=== PATIENT | female | born 1970 | race Native Hawaiian/Other Pacific Islander ===

== ENCOUNTER 2024-11-17 19:47 | Emergency (ER) | payer MEDICAID, SELFPAY ==
[2024-11-17 19:54] VITALS: BP 123/76; PULSE 109; RESP 26; TEMP 36.4; O2SAT 100
--- NOTE | 2024-11-17 19:57 | PD.EDCHEST ---
ED Chest Pain RME/HPI General Chief Complaint: Chest Pain Stated Complaint: RIGHT CHEST AREA PAIN Time Seen by Provider: 11/17/24 20:00 Arrival date/time: 11/17/24 19:47 RME / HPI RME / HPI narrative: This section includes all my notes and documentations, including HPI, PE, and ED course. Jos Waller MD HPI: 54yo female with a history of asthma presents to the ED for a chief complaint of right lower chest/right upper rib pain since last night. Patient states she's had a productive cough for the last 3 weeks, reporting she takes prednisone as needed. Patient denies any fever, chills, N/V or any other associated symptoms. Denies any falls or injuries. No other complaints reported. ROS: All negative except as documented in HPI. Physical Exam: General: Alert and oriented. In severe pain. Eyes: Conjunctivae and lids clear. ENT: No nasal congestion. Neck: Supple. Heart: RRR. Lungs: No respiratory distress. Good air movement with bibasilar rales. Abdomen: Soft and nontender. Normal bowel sounds. No distension. No rebound or guarding. Back: No CVA tenderness. Skin: Warm and dry. Neuro: Alert and oriented X 3. I reviewed all diagnostic test results. My interpretation of the EKG is unremarkable except for sinus tachycardia. My interpretation of the chest x-ray is significant right base pneumonia. My review of the US gallbladder is unremarkable. My review of the CT angio chest and CT abdomen pelvis reports show significant pneumonia at the right base. Blood tests and urine tests are unremarkable. At this point, diagnoses include pneumonia. Treatment here included Dilaudid, 2L NS, Rocephin, Azithromycin, Toradol, Morphine, Solu-Medrol, and Zofran. Significant improvement noted. Patient evaluated by our hospitalist service. Offered admission for the severe presentation of pain. Patient declined. Will try at home. Based on my best medical judgment, made decision no further evaluation or treatment indicated at this time. Patient understands and agrees to the discharge instructions customized and printed, see below. Discharge instructions from Dr. Waller: --No physical exertion for 3 days to help rest the lungs. ?No smoking or exposure to smoking or pets or dust or cold or humidity. --Zithromax and cefdinir to kill the germs causing the pneumonia. --Prednisone to help decrease the swelling in the airways. --Albuterol 2 puffs every 4-6 hours as needed for cough or shortness of breath. --Toradol 10 mg every 6-8 hours today and tomorrow to decrease inflammation then as needed. --Tylenol with codeine for more help with pain. --See a private doctor next week if not completely better. --Seek immediate medical care with worsening or with any concerns. Jos Waller MD Related Data Home Medications ?Medication ?Instructions ?Recorded ?Confirmed albuterol sulfate 90 mcg/actuation 1 puff inhalation Q4HR 04/17/22 04/17/22 aerosol inhaler Previous Rx's ?Medication ?Instructions ?Recorded acetaminophen 300 mg-codeine 30 mg 2 tab PO Q8H PRN pain #20 tabs 11/18/24 tablet albuterol sulfate 90 mcg/actuation 2 puff inhalation Q6H PRN 11/18/24 aerosol inhaler shortness of breath or wheezing #8.5 grams azithromycin 500 mg tablet 500 mg PO QDAY 3 days #3 tabs 11/18/24 (Zithromax [place]) cefdinir 300 mg capsule 300 mg PO BID #14 caps 11/18/24 ketorolac 10 mg tablet 10 mg PO Q8H PRN pain 5 days #10 11/18/24 tabs prednisone 50 mg tablet 50 mg PO QDAY #3 tabs 11/18/24 Allergies Allergy/AdvReac Type Severity Reaction Status Date / Time No Known Allergies Allergy Verified 04/17/22 14:30 Review of Systems Review of Systems Systems Reviewed: All systems reviewed, normal except as documented Past Medical History Past Medical History NEUROLOGIC: Positive Neurological Disorders and Migraine; Negative Seizures CARDIAC: Negative Cardiac Disorders or Congestive Heart Failure RESPIRATORY: Positive Asthma (uses inhalor); Negative Chronic Obstructive Pulmonary Disease (COPD) GASTROINTESTINAL: Negative Gastrointestinal Disorders GENITOURINARY: Negative Genitourinary Disorders or Renal Disease MUSCULOSKELETAL: Negative Musculoskeletal Disorders ENDOCRINE: Negative Endocrine Disorders, Diabetes Mellitus Type 1 or Diabetes Mellitus Type 2 HEMATOLOGIC: Negative Blood Disorders OTHER HISTORY: Negative Blood Transfusions, Blood Transfusion Reaction, Anesthesia Reactions, Organ Transplant, Chemotherapy, Radiation Therapy, Hyperbaric Therapy, MRSA, Clostridium Difficile or Cancer Family History FAMILY HISTORY: Negative Family Cardiac Disorders Surgical History SURGICAL: Positive Tubal Ligation; Negative Organ Transplant Social History SMOKING STATUS: Former smoker ED Exam Narrative Physical exam: As noted in HPI. Course Course Course Narrative: CXR is ordered for determining the etiology of chest pain. Quality Measures none Orders Category Date Time Status Bedside COVID-19 Antigen Test NOW Care 11/17/24 20:01 Active Bedside Influenza A&B Antigen Test NOW Care 11/17/24 20:[address] Screening NOW Care 11/17/24 20:02 Active EKG (ED ONLY) *Do not use* NOW Care 11/17/24 20:02 Completed Saline [Insert IV] NOW Care 11/17/24 20:[address] abdomen pelvis w con Stat Exams 11/17/24 20:[address] angio chest Stat Exams 11/17/24 20:02 Completed EKG (ED Only) Stat Exams 11/17/24 20:02 Draft US gall bladder Stat Exams 11/17/24 20:02 Completed XR chest 1V portable Stat Exams 11/17/24 20:02 Completed Amylase Stat Lab 11/17/24 20:20 Completed BNP [B-Type Natriuretic Peptide] Stat Lab 11/17/24 20:20 Completed Bilirubin,Direct Stat Lab 11/17/24 20:20 Completed Blood Culture (Lab) Stat Lab 11/17/24 21:50 Received CBC Stat Lab 11/17/24 20:20 Completed CMP [Comprehensive Metabolic Panel] Stat Lab 11/17/24 20:20 Completed CRP [C-Reactive Protein] Stat Lab 11/17/24 21:53 Completed D-Dimer Stat Lab 11/17/24 20:20 Completed ESR [Sed Rate (ESR)] Stat Lab 11/17/24 21:53 Completed Lipase Stat Lab 11/17/24 20:20 Completed Magnesium Stat Lab 11/17/24 20:20 Completed Procalcitonin Stat Lab 11/17/24 21:53 Completed Troponin I Stat Lab 11/17/24 20:20 Completed UA, C/S IF [Urinalysis, C/S if Indicated] Stat Lab 11/17/24 20:45 Completed Urine Culture Stat Lab 11/17/24 20:45 Received Azithromycin Inj [Zithromax Inj] 500 mg Med 11/17/24 21:38 Discontinued Sodium Chloride 0.9% 250 ml [Ns] 250 ml IV X1 HYDROmorphone INJ [Dilaudid Inj] Med 11/17/24 20:47 Discontinued 1 mg IVP X1 ONE Ketorolac Inj [Toradol Inj] Med 11/17/24 20:01 Discontinued 15 mg IVP X1 ONE Morphine Inj Med 11/17/24 20:01 Discontinued 2 mg IVP X1 ONE Ondansetron Inj [Zofran Inj] Med 11/17/24 22:40 Discontinued 4 mg IV X1 ONE Sodium Chloride 0.9% 1000 ml [Ns] 1,000 ml Med 11/17/24 20:01 Discontinued IV 999 mls/hr Sodium Chloride 0.9% 1000 ml [Ns] 1,000 ml Med 11/17/24 22:40 Discontinued IV 999 mls/hr cefTRIAXone/D5w 1gm IV premix [Rocephin/D5w 1gm IV Med 11/17/24 21:02 Discontinued premix] 1 gm in 50 ml IV X1 Vital Signs Vital signs: Vital Signs Temperature 97.6 F 11/17/24 19:54 Pulse Rate 109 H 11/17/24 19:54 Respiratory Rate 26 H 11/17/24 19:54 Blood Pressure 123/76 11/17/24 19:54 Pulse Oximetry (%) 100 11/17/24 19:54 Oxygen Delivery Method Room Air 11/17/24 19:54 Chest Pain MDM Narrative MDM Narrative:: Scribe Attestation: 11/17/24 - Lala Bowers am scribing for and in the presence of Dr. Waller. 54yo female with a history of asthma presents to the ED for a chief complaint of right lower chest/right upper rib pain since last night. Patient states she's had a productive cough for the last 3 weeks, reporting she takes prednisone as needed. Patient states she started having chest pain last night that has progressively gotten worse, so she came in for evaluation. Patient denies any fever, chills, N/V or any other associated symptoms. Denies any falls or injuries. No other complaints reported. Patient data External records reviewed:: [facility] previous records (Per chart review, patient has no relevant previous ED visits.) Clinical information provided by:: patient Social determinants that could affect healthcare access:: none Patient has the following chronic illnesses:: asthma How is presenting disease/condition affected by chronic disease/condition?: uneffected by Evaluation data The following diagnostics were reviewed and interpreted by me:: lab results, radiology exam(s) and EKG tracing(s) (My interpretation of the EKG is: Sinus tachycardia (111 bpm) with nonspecific ST-T changes. Jos Waller MD) Lab and/or radiology exams considered but not ordered:: none Interpretation Summary: I reviewed all diagnostic test results. My interpretation of the EKG is unremarkable except for sinus tachycardia. My interpretation of the chest x-ray is significant right base pneumonia. My review of the US gallbladder is unremarkable. My review of the CT angio chest and CT abdomen pelvis reports show significant pneumonia at the right base. Blood tests and urine tests are unremarkable except for an elevated white blood cell count. Medications / Prescriptions Medications or Prescriptions considered but not ordered:: none Medication administrations:: Medication Administration History Discontinued Medications Hydromorphone HCl (Hydromorphone Inj 2 Mg/Ml Vial) 1 mg IVP X1 ONE Stop: 11/17/24 20:48 Last Admin: 11/17/24 20:57 Dose: 1 mg Documented By: DT Sodium Chloride (Ns) 1,000 mls @ 999 mls/hr IV .Q1H1M ONE Stop: 11/17/24 21:01 Last Infusion: 11/17/24 21:36 Dose: Infused Documented By: Admin: 11/17/24 20:28 Dose: 999 mls/hr Documented By: DT Ceftriaxone Sodium/Dextrose (Rocephin/D5w 1gm Iv Premix) 1 gm in 50 mls @ 100 mls/hr IV X1 ONE Stop: 11/17/24 21:31 Last Infusion: 11/17/24 22:06 Dose: Infused Documented By: Admin: 11/17/24 21:34 Dose: 100 mls/hr Documented By: DT Azithromycin 500 mg/ Sodium (Chloride) 250 mls @ 250 mls/hr IV X1 ONE Stop: 11/17/24 22:37 Last Infusion: 11/17/24 23:57 Dose: Infused Documented By: Admin: 11/17/24 22:07 Dose: 250 mls/hr Documented By: DT Sodium Chloride (Ns) 1,000 mls @ 999 mls/hr IV .Q1H1M ONE Stop: 11/17/24 23:40 Last Infusion: 11/17/24 23:58 Dose: Infused Documented By: Admin: 11/17/24 23:00 Dose: 999 mls/hr Documented By: DT Ketorolac Tromethamine (Ketorolac Inj 30 Mg/Ml Vial) 15 mg IVP X1 ONE Stop: 11/17/24 20:02 Last Admin: 11/17/24 20:30 Dose: 15 mg Documented By: DT Morphine Sulfate (Morphine Sulf Inj 10 Mg/Ml Vial) 2 mg IVP X1 ONE Stop: 11/17/24 20:02 Last Admin: 11/17/24 20:31 Dose: 2 mg Documented By: DT Ondansetron HCl (Ondansetron Inj 2 Mg/Ml Inj 2 Ml) 4 mg IV X1 ONE; Protocol Stop: 11/17/24 22:41 Last Admin: 11/17/24 22:58 Dose: 4 mg Documented By: DT Dilaudid, 2L NS, Rocephin, Azithromycin, Toradol, Morphine, Zofran, Solu-Medrol Consultations Consultation(s) initiated? (list below): No Diagnosis Chest Pain Differential Diagnosis: fracture of rib, pneumothorax, stable angina, unstable angina pectoris, atypical chest pain, st elevation myocardial infarction, costochondritis, chest pain, biliary colic and other (Pneumonia, COVID, influenza) Most likely diagnosis given after review of the tests above:: Pneumonia Admission Indicated Admission indicated?: not indicated Explain why admission is indicated or not indicated:: With significant improvement, there was no indication for admission. Admission Request Was there a request for admission?: No Disposition Plan Disposition Plan: Discharge Discharge Attestation Discharge Attestation: The patient and all family members were given an opportunity to ask questions and understood the discharge instructions. Discharge instructions specifically effects, indications for sooner follow up or return to the emergency department, and the expected course of current diagnosis. Patient condition: Stable Discharge Plan Plan Patient Disposition: HOME (Self Care) Prescriptions/Referrals Prescriptions/Med Rec: New acetaminophen-codeine 300-30 mg tablet 2 tab PO Q8H MDD 6 PRN (Reason: pain) Qty: 20 0RF ketorolac 10 mg tablet 10 mg PO Q8H PRN (Reason: pain) 5 Days Qty: 10 0RF prednisone 50 mg tablet 50 mg PO QDAY Qty: 3 0RF albuterol sulfate 90 mcg/actuation HFA aerosol inhaler 2 puff inhalation Q6H PRN (Reason: shortness of breath or wheezing) Qty: 8.5 0RF cefdinir 300 mg capsule 300 mg PO BID Qty: 14 0RF azithromycin [Zithromax [place]] 500 mg tablet 500 mg PO QDAY 3 Days Qty: 3 0RF No Action albuterol sulfate 90 mcg/actuation HFA aerosol inhaler 1 puff INHALATION Q4HR Patient Comments: INHALE 1 PUFF BY MOUTH EVERY 4 HOURS NEEDED WHEEZING 30 DAYS Referrals: No Primary/Family,Physician [Primary Care Provider] - In 1 week Problem List Clinical Impression: Pneumonia Patient/Caregiver Discharge Instructions Discharge Activity: activity as tolerated Education Materials: ED Pneumonia (Adult) Additional Instructions: Discharge instructions from Dr. Waller: --No physical exertion for 3 days to help rest the lungs. ?No smoking or exposure to smoking or pets or dust or cold or humidity. --Zithromax and cefdinir to kill the germs causing the pneumonia. --Prednisone to help decrease the swelling in the airways. --Albuterol 2 puffs every 4-6 hours as needed for cough or shortness of breath. --Toradol 10 mg every 6-8 hours today and tomorrow to decrease inflammation then as needed. --Tylenol with codeine for more help with pain. --See a private doctor next week if not completely better. --Seek immediate medical care with worsening or with any concerns. Print Language: Italian Stand Alone Forms: Carlita Award Info., Patient Portal Info Letter
--- NOTE | 2024-11-17 20:02 | XR_ITS ---
Examination: CT abdomen with intravenous contrast CT pelvis with intravenous contrast 2-D coronal reconstructions 2-D sagittal reconstructions Date and time of exam:November 17, 2024 10:28 PM INDICATIONS: Right-sided flank pain today. CTDI: vol (mGy) 4.89 DLP: (mGycm) 235 Technique: Multiple axial sections of the abdomen and pelvis have been obtained. 64 slice high-resolution scanner used. 3 mm axial sections have been obtained, post intravenous injection 100 cc Isovue 370 2-D sagittal, coronal reconstructions obtained. Low dose protocols were performed. One or more of the following dose reduction techniques were used; automated exposure control, adjustment of the mA and/or KV according to patient size, use of iterative reconstruction technique. Findings: Significant pneumonia right base Small liver cysts Contracted gallbladder No pancreatic or adrenal mass [id number]-[id number] bilateral renal parenchymal scar formation No renal or ureteral calculi, hydronephrosis Aorta normal size Normal appendix No bowel obstruction No pelvic mass Urinary bladder is intact Osseous structures intact IMPRESSION: Significant pneumonia right base [id number] bilateral renal parenchymal scar formation No renal or ureteral calculi, no hydronephrosis Normal appendix
--- NOTE | 2024-11-17 20:02 | XR_ITS ---
Examination: CTA chest with intravenous contrast 2-D reconstructions 3-D reconstructions, vascular Date and time of exam: 02/17/2025 10:28 PM INDICATIONS: Onset chest pain today CTDI: vol (mGy) 4.87 DLP: (mGycm) 170 Technique: Multiple axial sections of the thorax have been obtained. 3 mm slice thickness, from below the hemidiaphragms to above the apices of the lungs. Mediastinal and lung density settings have been obtained. 2-D sagittal and coronal reconstructions. 3-D angiographic renderings, 3-D volume renderings, 3D post processing, vascular maximum intensity projections obtained. Contrast administered is 100 cc Isovue 370 2-D sagittal coronal reconstructions 3-D reconstructions Low-dose protocols, automated exposure control, adjustment JUAN be according to patient's size FINDINGS: There is no thoracic aortic aneurysm dilatation No pulmonary artery filling defects No paratracheal tracheobronchial or bronchopulmonary adenopathy Pneumonia in the right lower lobe No focal liver or splenic lesion Contracted gallbladder IMPRESSION: Negative for pulmonary artery emboli Significant pneumonia right base.
--- NOTE | 2024-11-17 20:02 | EKG_ITS ---
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
--- NOTE | 2024-11-17 20:02 | XR_ITS ---
Examination: AP chest single view TECHNIQUE: AP portable upright chest single view Date and time examination November 17, 20242045 hours INDICATIONS: Shortness of breath today. FINDINGS: Significant pneumonia right base Normal heart size Moderate osteopenia IMPRESSION: Significant pneumonia right base
--- NOTE | 2024-11-17 20:02 | XR_ITS ---
Examination: Abdomen sonogram, Limited Date and time of exam: November 17, 2024 202 hours INDICATIONS: Right upper abdominal pain and tenderness today Technique: Real-time gerard scale transabdominal sonographic images of the upper abdomen obtained. Findings: Contracted gallbladder No definite gallstones Common bile duct 0.6 cm Pancreatic head 1.8 cm Liver 13.4 cm no liver lesions Normal hepatopedal portal venous flow Patent IVC IMPRESSION: Repeat this study with fasting to diagnostically assess the gallbladder
[2024-11-17 20:27] LABS: Basophils % (Auto) 0 % (0-2.5); Eosinophils # (Auto) 0.3 Thou/mm3 (0.0-0.5); Eosinophils % (Auto) 2 % (0-10); Hematocrit 37.4 % (36.0-46.0); Hemoglobin 12.6 g/dL (12.0-16.0); Immature Granulocytes % (Auto) 0 % (0-0); Immature Granulocytes Auto 0.03 Thou/mm3 (0.00-0.00); Lymphocytes # (Auto) 2.7 Thou/mm3 (1.0-4.8); Lymphocytes % (Auto) 21 % (10-50); Mean Corpuscular HGB Conc 33.7 g/dl (31.0-37.0); Mean Corpuscular Hemoglobin 27.3 pg (25.0-35.0); Mean Corpuscular Volume 81 fL (80-100); Monocytes # (Auto) 0.9 Thou/mm3 (0.0-0.8); Monocytes % (Auto) 7 % (0-12); Neutrophils # (Auto) 8.9 Thou/mm3 (1.8-7.7); Neutrophils % (Auto) 69 % (37-80); Nucleated Red Blood Cell % 0 /100 WBC (0); Platelet Count 524 Thou/mm3 (140-440); RDW Standard Deviation 34.5 fL (36.4-46.3); Red Blood Count 4.61 Miln/mm3 (4.00-5.20)
[2024-11-17] MEDS: SODIUM CHLORIDE 0.9% 1000 ML 1,000 ML 999 ML IV ×2 (20:28→23:00)
[2024-11-17 20:30] VITALS: TEMP 37
[2024-11-17] MEDS: KETOROLAC INJ 30 MG/ML VIAL 15 MG IVP (20:30)
[2024-11-17] MEDS: MORPHINE SULF INJ 10 MG/ML VIAL 2 MG IVP (20:31)
[2024-11-17 20:43] LABS: D-Dimer < 250 ng/mL (<600)
[2024-11-17 20:47] LABS: B-Type Natriuretic Peptide < 20 pg/mL (0-100)
[2024-11-17 20:50] LABS: Collection Type, Urine Clean Catch
[2024-11-17] MEDS: HYDROmorphone INJ 2 MG/ML VIAL 1 MG IVP (20:57)
[2024-11-17 21:01] LABS: Bacteria,Urine Rare; Bilirubin,Urine Negative (Negative); Blood,Urine Trace (Negative); Clarity,Urine Clear (Clear/Hazy); Color,Urine Lt-Yellow (Lt Yel-Yel); Culture Indicated,Urine Yes; Glucose, Urine Negative (Negative); Hyaline Casts,Urine < 1 /hpf (0-1); Ketones,Urine Negative (Negative); Leukocyte Esterase,Urine Positive (Negative); Nitrite,Urine Negative (Negative); PH,Urine 6.5 (5.0-7.0); Protein,Urine Negative (Neg - Trace); RBC,Urine 2 /hpf (0-3); Specific Gravity,Urine 1.015 (1.001-1.035); Squamous Epithelial Cell,Urine < 1 /hpf (0-5); Urobilinogen,Urine Negative mg/dL (0.0-1.0); WBC,Urine 21 /hpf (0-5)
[2024-11-17] MEDS: cefTRIAXone/D5w 1gm IV premix 1 GM/50 ML BAG IV (21:34)
[2024-11-17 21:36] VITALS: TEMP 36.7
[2024-11-17 21:44] LABS: Alanine Aminotransferase 14 U/L (10-49); Albumin/Globulin Ratio 1.5 (1.2-2.2); Alkaline Phosphatase 75 U/L (46-116); Anion Gap 7 (7-16); Aspartate Amino Transferase 15 U/L (0-34); BUN/Creatinine Ratio 15 Ratio (12-20); Bilirubin,Direct < 0.1 mg/dL (0.0-0.3); Bilirubin,Total 0.2 mg/dL (0.3-1.2); Blood Urea Nitrogen 9 mg/dL (9-23); Calcium 8.9 mg/dL (8.3-10.6); Calcium (Corrected) 8.9 mg/dL (8.5-10.1); Carbon Dioxide 26.1 mMol/L (20.0-31.0); Chloride 102 mMol/L (98-107); Creatinine (Component) 0.6 mg/dL (0.6-1.3); Estimated Creatinine Clearance 79.8 mL/min (>60); Globulin 2.6 gm/dL (2.3-3.5); Glucose 122 mg/dL (74-106); Lipase 71 U/L (12-53); Magnesium 1.8 mg/dL (1.6-2.6); Osmolality,Calculated 269 (275-295); Potassium 3.7 mMol/L (3.4-5.1); Sodium 135 mMol/L (136-145); Total Protein 6.6 gm/dL (5.7-8.2); Troponin I < 0.002 ng/mL (0.0-0.045); eGFR > 60 See Note
[2024-11-17 21:58] LABS: Amylase 97 U/L (30-118)
[2024-11-17] MEDS: AZITHROMYCIN INJ 500 MG in SODIUM CHLORIDE 0.9% 250 ML 250 ML 250 MG IV (22:07)
[2024-11-17 22:27] LABS: Sed Rate (ESR) 16 mm/hr (0-30)
[2024-11-17 22:31] LABS: Procalcitonin < 0.04 ng/ml (0.0-0.49)
[2024-11-17] MEDS: ONDANSETRON INJ 2 MG/ML INJ 2 ML 4 MG IV (22:58)
--- NOTE | 2024-11-17 23:58 | PC.NURSE ---
Emergency Contact: JEAN-PIERRE Coronado (FRIEND) [phone]
[2024-11-18] MEDS: MethylPREDNISolone SOD SUCC 62.5 MG/ML 2ML VIAL 125 MG IVP (00:53)
[2024-11-18 01:29] VITALS: BP 140/90; PULSE 89; RESP 14; TEMP 37; O2SAT 99
--- NOTE | 2024-11-18 02:00 | PD.RESEVENT ---
Documentation for date of: 11/18/24 Event Note Event Note: Patient is 54 yr female with PMH of bronchitis on inhaler and steroids presenting to ED tonight due to chief complaint of right chest pain. Patient states that pain started yesterday night, localized on right abdomen, worse with inspiration and palpation, 10/10, non radiating. She did not take anything for the pain at home. Patient came to ED due to worsening pain and and was given IV morphine 2 mg and IV Dilaudid 1 mg which improved pain to 3 out of 10. Workup for chest pain including possible cardiac etiology was ruled out as troponins were negative and EKG showed no acute ischemic changes with regular rate and rhythm. Chest x-ray showed suspicion of right lower lobe pneumonia. CBC showed leukocytosis 13, heart rate 109 on admission, tachypneic 26, afebrile, 99% O2 on room air. However, there was no evidence of endorgan damage. Sepsis alert was not called. Chest pain more pleuritic in nature most likely attributed to pneumonia. Patient was updated on findings and counseled on diagnosis. Alternative options such as p.o. antibiotics and pain management were discussed. She was amenable to discharge preferring outpatient treatment. Patient was encouraged to return to ED if symptoms return or worsen.
== END 2024-11-18 01:30 | disposition home or self-care (01) ==
PROVIDERS: Emergency Provider Emergency Medicine
DX: J18.9 Pneumonia, unspecified organism (principal); J45.909 Unspecified asthma, uncomplicated
CPT/HCPCS: 36415; 71045; 71275; 74177; 76705; 80053; 81001; 82150; 82248; 83690; 83735; 83880; 84145; 84484; 85025; 85379; 85652; 86140; 87040; 87086; 87400; 87811; 93005; 96361; 96365; 96366; 96367; 96375; 99285; A4649; J0456; J0696; J1171; J1885; J2270; J2405; J2919; J7030; J7050; Q9967